=== PATIENT | female | born 2000 | race Two or more races ===

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

== ENCOUNTER 2022-10-05 10:34 | Emergency (ER) | payer MEDICAID ==
[~2022-10-05] VITALS: Ht 152.4 cm; Wt 73.8 kg
[2022-10-05 10:40] VITALS: BP 116/86
[2022-10-05] MEDS ORDERED: TETRACAINE HCL 0.5% OPTH(EYE) SOLN 4ML LEFTEYE ONE (11:45)
[2022-10-05] MEDS ORDERED: HYDROcodone-ACET 5/325MG TAB PO ONE (11:45)
[2022-10-05] MEDS ORDERED: OLOP0.1S8 OP (11:59)
[2022-10-05] MEDS ORDERED: ACET300T58 PO (11:59)
[2022-10-05] MEDS ORDERED: CROM4SOL6 OP (11:59)
== END 2022-10-05 12:07 | disposition home or self-care (01) ==
LOC: ER 10:34
DX: H10.12 Acute atopic conjunctivitis, left eye (principal)